=== PATIENT | female | born 1995 | race Caucasian/White ===

== ENCOUNTER 2017-07-09 10:48 | Emergency (ER) | payer BC, OTHER ==
[2017-07-09 10:56] VITALS: BP 147/94
--- NOTE | 2017-07-09 11:40 | ED ---
Skin Complaint - HPI Summary HPI Summary: 21 female presents to ED with complaints of touching dried blood with un-gloved right hand while transferring over a sharps container. Patient states she does not have any open cuts or wounds. She washed her hands directly after touching the dried blood. Unknown if any blood got onto her skin. Denies any other complaints at this time. Here to obtain medical advice. - History of Current Complaint Chief Complaint: EDExposureBodyFluid Time Seen by Provider: 07/09/17 10:57 Stated Complaint: EXPOSURE TO BLOOD Hx Obtained From: Patient Hx Last Menstrual Period: Aug 25 Onset/Duration: Started Minutes Ago Skin Exposure Onset/Duration: Minutes Ago Current Severity: None Pain Intensity: 0 Pain Scale Used: 0-10 Numeric Skin Location: Hand - right Aggravating Symptom(s): Nothing Alleviating Symptom(s): Nothing Associated Signs & Symptoms: Negative - Additional Pertinent History Primary Care Physician: [id number] - Allergy/Home Medications Allergies/Adverse Reactions: Allergies Allergy/AdvReac Type Severity Reaction Status Date / Time No Known Allergies Allergy Verified 08/29/16 18:02 PMH/Surg Hx/FS Hx/Imm Hx Endocrine/Hematology History: Denies: Hx Diabetes Cardiovascular History: Reports: Hx Hypertension GI History: Reports: Other GI Disorders - liver hemangioma Sensory History: Reports: Hx Contacts or Glasses Opthamlomology History: Reports: Hx Contacts or Glasses Psychiatric History: Reports: Hx Anxiety, Hx Depression - Surgical History Surgery Procedure, Year, and Place: wisdom teeth - Immunization History Immunizations Up to Date: Yes Infectious Disease History: No Infectious Disease History: Denies: Traveled Outside the [place] in Last 30 Days - Family History Known Family History: Positive: Cardiac Disease - maternal - grandparents Negative: Seizure Disorder Family History: FHx of a pacemaker in the patient's maternal grandfather - Social History Alcohol Use: Rare Hx Substance Use: No Substance Use Type: Reports: None Hx Tobacco Use: No Smoking Status (MU): Never Smoked Tobacco Review of Systems Constitutional: Negative Respiratory: Negative Gastrointestinal: Negative Positive: Other - touched dried blood All Other Systems Reviewed And Are Negative: Yes Physical Exam Triage Information Reviewed: Yes Vital Signs On Initial Exam: Initial Vitals Temp Pulse Resp BP Pulse Ox 98.8 F 73 16 147/94 100 07/09/17 10:50 07/09/17 10:50 07/09/17 10:50 07/09/17 10:50 07/09/17 10:50 Vital Signs Reviewed: Yes Appearance: Positive: Well-Appearing, No Pain Distress, Well-Nourished Skin: Positive: Warm, Skin Color Reflects Adequate Perfusion, Dry, Other - no open wounds, lacerations, cuts, abrasions or chapped skin visible on bilateral hands. no sign of bodily fluid/blood. Negative: Cold, Numb, Cyanosis @, Mass @ , Erythema @ Head/Face: Positive: Normal Head/Face Inspection Eyes: Positive: Conjunctiva Clear ENT: Positive: Normal ENT inspection, Hearing grossly normal Neck: Positive: Supple, Nontender Respiratory/Lung Sounds: Positive: Clear to Auscultation, Breath Sounds Present. Negative: Rales, Rhonchi, Wheezes Cardiovascular: Positive: Normal, RRR, Pulses are Symmetrical in both Upper and Lower Extremities. Negative: Murmur, Rub Abdomen Description: Positive: Nontender Bowel Sounds: Positive: Present Musculoskeletal: Positive: Normal, Strength/ROM Intact Neurological: Positive: Normal, Sensory/Motor Intact, Alert, Oriented to Person Place, Time Psychiatric: Positive: Affect/Mood Appropriate - Morrison Coma Scale Coma Scale Total: 15 Diagnostics - Vital Signs Vital Signs Temp Pulse Resp BP Pulse Ox 07/09/17 10:50 98.8 F 73 16 147/94 100 - Laboratory Lab Statement: Any lab studies that have been ordered have been reviewed, and results considered in the medical decision making process. Course/Dx - Course Course Of Treatment: Evaluated patient as requested. Does not appear necessary that patient need prophylactic treatment or blood work due to mechanism of body fluid exposure. patient touched tried blood that she does not think got onto her un gloved hand that is without open wounds/abrasions and chapped skin. patient was reassured that the likelihood of transmission is very low and bloowork/ PEP did not seem appropriate at this time. Patient agreed and is in complete understanding. No blood work or prophylactic medication/ measures taken. Educated on risk benefit. No concern for other etiology at this time. No other complaints at this time. Follow up PCP. - Differential Diagnoses - Skin Complaint Differential Diagnoses: Other - bodily fluid exposure, blood work, screening examination/evalution - Diagnoses Provider Diagnoses: Encounter for medical screening examination Discharge - Discharge Plan Condition: Stable Disposition: HOME Patient Education Materials: Body Substance Exposure (ED) Referrals: Rupal Fung MD [Primary Care Provider] - Additional Instructions: If you feel you would like bloodwork down the road and change your mind please seek medical attention.
== END 2017-07-09 11:57 | disposition home or self-care (01) ==
LOC: ED 10:48
DX: Z77.21 Contact with and (suspected) exposure to potentially hazardous body fluids (principal); I10 Essential (primary) hypertension; F41.9 Anxiety disorder, unspecified; F32.9 Major depressive disorder, single episode, unspecified
CPT/HCPCS: 99284

== ENCOUNTER → 2019-03-22 10:37 | Emergency (ER) | payer BC, OTHER ==
[~2019-03-22 10:37] MED LIST: Acetaminophen TAB* 325 MG PO ONE; Iohexol 300* (CONTRAST) 10 ML SDV IV ONE
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
[2019-03-22 11:45] LABS: ABS Lymphocytes 1.2 10^3/ul (1.0-4.8); ABS Monocytes 0.6 10^3/ul (0-0.8); ABS Neutrophils 7.2 10^3/ul (1.5-7.7); Eosinophil % 0.2 %; Hematocrit 44 % (35-47); Hemoglobin 15.1 g/dL (12.0-16.0); Lymphocyte % 13.2 %; Mean Corpuscular HGB Conc 35 g/dL (31-36); Mean Corpuscular Hemoglobin 30 pg (27-31); Mean Corpuscular Volume 86 fL (80-97); Mean Platelet Volume 8.3 fL (7.4-10.4); Platelet Count 200 10^3/uL (150-450); Red Blood Count 5.06 10^6 /uL (3.70-4.87); Red Cell Distribution Width 13 % (10-15); White Blood Count 9.1 10^3/uL (3.5-10.8)
[2019-03-22 12:01] LABS: Albumin 4.3 g/dL (3.2-5.2); Calcium 9.8 mg/dL (8.6-10.3); Total Bilirubin 0.7 mg/dL (0.2-1.0)
[2019-03-22 12:07] LABS: Albumin/Globulin Ratio 1.3 (1-3); BUN/Creatinine Ratio 11.6 (8-20); EGFR African American 97.3 (>60); EGFR Non-African American 80.4 (>60); Globulin 3.4 g/dL (2-4); Total Protein 7.7 g/dL (6.4-8.9)
[2019-03-22 13:19] LABS: Urine Appearance Clear; Urine Bacteria Absent (Absent); Urine Bilirubin Negative (Negative); Urine Blood 2+ (Negative); Urine Color Straw; Urine Glucose Negative (Negative); Urine Ketones Negative (Negative); Urine Nitrite Negative (Negative); Urine Protein Negative (Negative); Urine Red Blood Cell Trace(0-2/hpf) (Absent); Urine Specific Gravity 1.003 (1.010-1.030); Urine Squamous Epithelial Cell Present (Absent); Urine Urobilinogen Negative (Negative); Urine White Blood Cell Trace(0-5/hpf) (Absent)
[2019-03-22 13:36] VITALS: BP 130/98
== END | disposition home or self-care (01) ==
LOC: ED 10:37
DX: S20.219A Contusion of unspecified front wall of thorax, initial encounter (principal); V47.0XXA Car driver injured in collision with fixed or stationary object in nontraffic accident, initial encounter; W22.10XA Striking against or struck by unspecified automobile airbag, initial encounter; Y92.410 Unspecified street and highway as the place of occurrence of the external cause; I10 Essential (primary) hypertension; I71.2 Thoracic aortic aneurysm, without rupture; D18.09 Hemangioma of other sites; F41.9 Anxiety disorder, unspecified; F32.9 Major depressive disorder, single episode, unspecified
CPT/HCPCS: 36415; 70450; 71260; 72125; 74177; 80053; 81003; 81015; 83605; 85025; 87086; 93005; 99282; A9270-GY; Q9967